=== PATIENT | female | born 1995 | race Caucasian/White ===

== ENCOUNTER 2017-02-18 13:39 | Emergency (ER) | payer OTHER ==
[~2017-02-18] VITALS: Ht 160 cm; Wt 94.8 kg
[~2017-02-18 13:39] MED LIST: AUGMENTIN 500-1 EACH PO; BACTRIM DS 8001 TAB PO; DEPO-PROVE150 MG/1 M IM; FLEXERIL10 MG PO; HYCET 7.5 MG-3473 ML PO; LOVENOX40 MG/0.1 SC; MOTRIN 600 MG600 MG PO; PHENERGAN25 M2 RC; PROTONIX20 M1 PO; STOOL SOFT50 MG/5 ML PO; ZOFRAN 4MG ORALL4 MG PO; ZOFRAN4 M2 SL
[2017-02-18 13:44] VITALS: BP 124/75
--- NOTE | 2017-02-18 14:17 | ED GENERAL ADULT ---
History of Present Illness General Chief Complaint: General Adult Stated Complaint: PT WALK IN TO THE GLASS Source: patient Exam Limitations: no limitations Vital Signs & Intake/Output Vital Signs & Intake/Output Vital Signs Date Time Temp Pulse Resp B/P Pulse O2 O2 Flow FiO2 Ox Delivery Rate 02/18 1601 70 02/18 1434 98 Room Air 02/18 1344 97.9 62 16 124/75 99 Room Air Allergies Coded Allergies: cat dander (Intermediate, HIVES 10/13/16) haloperidol (From HALDOL) (Mild, RASH ON FACE 07/28/16) Reconcile Medications Medroxyprogesterone Acetate (Depo-Provera) 150 MG/ML VIAL 150 MG IM Q3M CONTROL (Reported) Triage Note: PT STATES SHE WALKED INTO [employer] AND CUT HER LEFT DUNCAN ABOUT 20 MINUTES AGO Triage Nurses Notes Reviewed? yes Onset: Just prior to arrival Duration: minute(s): (30) Timing: no prior history Injury Environment: work Severity: moderate Severity Numbers: 6 Modifying Factors: Improves With: immobilization. Worsens With: movement. : No Patient currently breastfeeds: No HPI: Patient is a 21-year-old female presenting to the emergency department with chief complaint of laceration to right lower leg after she accidentally bumped into a broken piece of glass at work prior to arrival. Pain is mild to moderate worse with movement and palpation. Up-to-date with tetanus. Denies numbness or tingling. Denies any other injuries. No nausea vomiting fevers or chills chest pain or shortness of breath. She put rubbing alcohol on the laceration immediately after happened. She reports that it went through her leather boot. (DEYVI HAY) Past History Travel History Traveled to [place] past 21 day No Medical History Any Pertinent Medical History? see below for history Neurological: NONE EENT: NONE Cardiovascular: NONE Respiratory: NONE Gastrointestinal: HIATAL HERNIA GASTRIC SLEEVE Hepatic: NONE Renal: NONE Musculoskeletal: NONE Psychiatric: NONE Endocrine: NONE Blood Disorders: NONE Cancer(s): NONE SENIOR INSPECTOR/Reproductive: NONE History of MRSA: No History of VRE: No History of CDIFF: No Tetanus Vaccine: 10/13/16 Surgical History Surgical History: gastric sleeve Psychosocial History Who do you live with Family Services at Home None What is your primary language Latvian Tobacco Use: Never used ETOH Use: occasional use Illicit Drug Use: denies illicit drug use Family History Hx Contributory? No (DEYVI HAY) Review of Systems Review of Systems Constitutional: Reports: no symptoms. Comments Review of systems: See HPI, All other systems negative. Constitutional, no chills fever or weight loss HEENT: No visual changes no sore throat no congestion Cardiovascular: No chest pain ,palpitation Skin, no jaundice no rashes Respiratory: No dyspnea cough sputum GI: No nausea no vomiting Muscle skeletal: no back pain, no neck pain, Neurologic: No numbness no confusion Psych: No stress anxiety Heme/endocrine: No bruising no bleeding no polyuria or polydipsia Immunology: No splenectomy or history of AIDS (DEYVI HAY) Physical Exam Physical Exam General Appearance: well developed/nourished, no apparent distress, alert, comfortable Comments: Well-developed well-nourished person in no acute distress HEENT: Pupils equally round and reactive to light and accommodation. Nose is atraumatic. Neck: normal inspection Back: Nontender Cardiovascular: Regular rate and rhythms no murmurs rubs or gallops, normal JVP Respiratory: No respiratory distress.breath sounds clear to auscultation bilaterally Extremity: No edema, Neuro: Alert oriented x3, motor sensory normal Skin: 3 cm while approximating jag and laceration noted on the lateral aspect of the right lower extremity, mid shaft of the tibia area. There is a 1 cm piece of glass sticking from the laceration. No surrounding erythema or edema. Mildly tender to palpation. Psych: Mood and affect is normal, memory and judgment is normal. Core Measures ACS in differential dx? No CVA/TIA Diagnosis: No Severe Sepsis Present: No Septic Shock Present: No (DEYVI AHY) Progress Differential Diagnoses I considered the following diagnoses in my evaluation of the patient: Laceration, abrasion, contusion, foreign body in soft tissue, puncture wound Plan of Care: Cleaned and anesthetized. Foreign body was removed. Irrigation revealed no more foreign bodies. The foreign body did not break when we have removed it. Wound will be sutured. Patient declined pain medication on arrival. Initial ED EKG: none (DEYVI HAY) Departure Departure Time of Disposition: 1505 Disposition: HOME OR SELF CARE Condition: Stable Clinical Impression Primary Impression: Laceration Referrals: JUAN ROMERO,XIMENA Santiago (PCP/Family) Additional Instructions: Return in 10-14 days for suture removal. Keep wound clean, keep wound dry. Return sooner if he develop any increased redness pain or discharge from the laceration. Take Motrin and Tylenol as directed [id number] for pain. Departure Forms: Customer Survey General Discharge Information (DEYVI HAY) PA/GAMBLING DEALER Co-Sign Statement Statement: ED Attending supervision documentation- [] I saw and evaluated the patient. I have also reviewed all the pertinent lab results and diagnostic results. I agree with the findings and the plan of care as documented in the PA's/GAMBLING DEALER's documentation. [X] I have reviewed the ED Record and agree with the PA's/GAMBLING DEALER's documentation. [] Additions or exceptions (if any) to the PAs/GAMBLING DEALER's note and plan are summarized below: [] (CHARBEL ROMERO,REBEKA) Procedures Laceration/Wound Repair Laceration/Wound Repair: Wound Location: lower extremity Wound's Depth, Shape: irregular, subcutaneous Wound Length (cm): 3 Wound Explored: clean, no foreign body removed, foreign body removed, irrigated extensively Irrigated w/ Saline (ccs): 2000 Betadine Prep? Yes Anesthesia: 1% lidocaine Volume Anesthetic (ccs): 4 Wound Debrided: minimal Wound Repaired With: sutures Suture Size/Type: 4:0, nylon Number of Sutures: 6 Layer Closure? No Tetanus Status: up to date Progress: Patient tolerated procedure well. (DEYVI HAY) Critical Care Note Critical Care Note Critical Care Time: non-applicable (DEYVI HAY)
== END 2017-02-18 16:01 ==
LOC: ERH 13:39
DX: S81.811A Laceration without foreign body, right lower leg, initial encounter (principal); W25.XXXA Contact with sharp glass, initial encounter

== ENCOUNTER 2017-03-02 18:16 | Emergency (ER) | payer OTHER | END 2017-03-02 19:00 | disposition admitted as inpatient to this hospital (09) | LOC: ERH 18:16 | DX: Z48.02 Encounter for removal of sutures (principal) ==

== ENCOUNTER 2017-03-10 06:06 | Emergency (ER) | payer OTHER ==
[~2017-03-10] VITALS: Ht 157.5 cm; Wt 74.8 kg
[2017-03-10 06:15] VITALS: BP 123/59
--- NOTE | 2017-03-10 06:17 | ED SKIN/ALLERGY COMPLAINT ---
History of Present Illness General Chief Complaint: Skin Rash/ Abcess Stated Complaint: SKIN RASH Source: patient Exam Limitations: no limitations Vital Signs & Intake/Output Vital Signs & Intake/Output Vital Signs Date Time Temp Pulse Resp B/P Pulse O2 O2 Flow FiO2 Ox Delivery Rate 03/10 0615 97.1 56 18 123/59 96 Allergies Coded Allergies: cat dander (Intermediate, HIVES 10/13/16) haloperidol (From HALDOL) (Mild, RASH ON FACE 07/28/16) Reconcile Medications Hydrocortisone 1 % CREAM..G. 1 ENMA TOP BID ITCHING apply to affected area(s) Ibuprofen 600 MG TABLET 1 TAB PO TID PRN PAIN with food Medroxyprogesterone Acetate (Depo-Provera) 150 MG/ML VIAL 150 MG IM Q3M CONTROL (Reported) Methylprednisolone. (Medrol) 4 MG TAB.DS.PK 1 DP PO AD INFLAMMATION 6 on day 1 then reduce by one tablet daily until gone Triage Nurses Notes Reviewed? yes Onset: Abrupt Duration: day(s): (1) Timing: multiple episodes today Severity: mild Location: torso, extremities HPI: 21-year-old female presents to the ER for chief complaint of rash and itching to upper extremities and now to face. She states it started last night. Denies any change to her recent routine. She does work with Dr. She was bit by a rescue dog in her left breast a few days ago. That area has been healing well and is not red. She also presents for removal for stitches to her right leg that were placed 2 weeks ago. Past History Travel History Traveled to [place] past 21 day No Medical History Any Pertinent Medical History? see below for history Neurological: NONE EENT: NONE Cardiovascular: NONE Respiratory: NONE Gastrointestinal: HIATAL HERNIA GASTRIC SLEEVE Hepatic: NONE Renal: NONE Musculoskeletal: NONE Psychiatric: NONE Endocrine: NONE Blood Disorders: NONE Cancer(s): NONE PHARMACOGNOSIST/Reproductive: NONE History of MRSA: No History of VRE: No History of CDIFF: No Tetanus Vaccine: 10/13/16 Surgical History Surgical History: gastric sleeve Psychosocial History Who do you live with Family Services at Home None What is your primary language Israeli Family History Hx Contributory? No Review of Systems Review of Systems Constitutional: Denies: chills, fever. EENTM: Reports: no symptoms. Respiratory: Denies: short of breath. Cardiovascular: Denies: chest pain. GI: Reports: no symptoms. Genitourinary: Reports: no symptoms. Musculoskeletal: Reports: no symptoms. Skin: Reports: rash. Neurological/Psychological: Reports: no symptoms. Hematologic/Endocrine: Denies: bruising, bleeding, polyuria, polydipsia. Immunologic/Allergic: Denies: splenectomy. All Other Systems: Reviewed and Negative Physical Exam Physical Exam General Appearance: well developed/nourished, awake, mild distress Head: atraumatic Eyes: Bilateral: PERRL, EOMI. Ears, Nose, Throat: normal pharynx, normal ENT inspection, hearing grossly normal Neck: normal inspection, supple Respiratory: normal breath sounds Cardiovascular: regular rate/rhythm Gastrointestinal: soft, non-tender Back: normal inspection Extremities: normal inspection, normal range of motion, no edema Neurologic/Psych: awake, alert, oriented x 3, normal mood/affect Skin: intact, normal color, warm/dry Skin Problem Location: face, neck, upper extremities Skin Problem Character: urticarial Lymphatic: no anterior cervical valeria Progress Differential Diagnosis: allergic reaction Plan of Care: Current Medications Sig/Xiomara Start time Last Medication Dose Stop Time Status Admin Famotidine 20 MG ONCE ONE 03/10 630 AC (Pepcid) 03/10 631 Prednisone 60 MG ONCE ONE 03/10 630 AC 03/10 631 Departure Departure Time of Disposition: 627 Disposition: HOME OR SELF CARE Condition: Stable Clinical Impression Primary Impression: Rash Referrals: JUAN ROMERO,XIMENA Santiago (PCP/Family) Additional Instructions: Take the prednisone and cortisone cream and pepcid as directed. Take benadryl as needed. Follow up with your doctor in the office. Return as needed. Departure Forms: Customer Survey General Discharge Information Prescriptions: Current Visit Scripts Methylprednisolone. (Medrol) 1 DP PO AD #1 DP 6 on day 1 then reduce by one tablet daily until gone Hydrocortisone 1 ENMA TOP BID #30 GM apply to affected area(s)
[2017-03-10] MEDS ORDERED: HYDROCORTISO453.6 G1 TOP (06:33)
[2017-03-10] MEDS ORDERED: MEDROL4 M2 PO (06:33)
== END 2017-03-10 06:59 ==
LOC: ERH 06:06
DX: R21 Rash and other nonspecific skin eruption (principal)

== ENCOUNTER 2017-03-12 13:15 | Emergency (ER) | payer OTHER ==
[~2017-03-12] VITALS: Ht 160 cm; Wt 93.0 kg
[~2017-03-12 13:15] MED LIST changes: +HYDROCORTISO453.6 G1 TOP; +MEDROL4 M2 PO
[2017-03-12 13:17] VITALS: BP 157/102
--- NOTE | 2017-03-12 13:23 | ED GENERAL ADULT ---
See Addendum History of Present Illness General Chief Complaint: Fall Stated Complaint: L WRIST/L LEG PAIN S/P FALL Source: patient Exam Limitations: no limitations Vital Signs & Intake/Output Vital Signs & Intake/Output Vital Signs Date Time Temp Pulse Resp B/P Pulse O2 O2 Flow FiO2 Ox Delivery Rate 03/12 1344 Room Air Room Air 03/12 1317 98.6 97 16 157/102 98 Room Air Allergies Coded Allergies: cat dander (Intermediate, HIVES 10/13/16) haloperidol (From HALDOL) (Mild, RASH ON FACE 07/28/16) Reconcile Medications Hydrocortisone 1 % CREAM..G. 1 ENMA TOP BID ITCHING apply to affected area(s) Ibuprofen 600 MG TABLET 1 TAB PO TID PRN PAIN with food Medroxyprogesterone Acetate (Depo-Provera) 150 MG/ML VIAL 150 MG IM Q3M CONTROL (Reported) Methylprednisolone. 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 VARIOUS SCRAPES NOTED AND AREAS OF REDNESS TO ARMS AND L LEG. PT C/O PAIN IN L WRIST. SPLINT PLACED. MED WITH MOTRIN. TAKEN TO [facility] FOR [facility] Triage Nurses Notes Reviewed? yes Onset: Abrupt Duration: hour(s): Timing: recent history : No Patient currently breastfeeds: No HPI: 03/12/17 1:25 PM This is a 21-year-old female presents to the emergency department status post fall. The patient was on a 3 foot step ladder and fell off injuring her left ankle, her left foot and her left forearm. The onset of the symptoms were abrupt, the duration was just today, the severity is significant; as her symptoms required to come to the emergency department for care. She denies headache neck pain abdominal pain or other complaints. She denies any possibility of . X-rays were ordered and she was treated with analgesics at triage. The patient has tenderness to the the lateral malleolus on the left. She also has significant tenderness to the left dorsal forearm. Past History Travel History Traveled to [place] past 21 day No Medical History Any Pertinent Medical History? see below for history Neurological: NONE EENT: NONE Cardiovascular: NONE Respiratory: NONE Gastrointestinal: HIATAL HERNIA GASTRIC SLEEVE Hepatic: NONE Renal: NONE Musculoskeletal: NONE Psychiatric: NONE Endocrine: NONE Blood Disorders: NONE Cancer(s): NONE INDUSTRIAL RELATIONS REPRESENTATIVE/Reproductive: NONE History of MRSA: No History of VRE: No History of CDIFF: No Tetanus Vaccine: 10/13/16 Surgical History Surgical History: gastric sleeve Psychosocial History Who do you live with Family Services at Home None What is your primary language Yi Tobacco Use: Never used Family History Hx Contributory? No Review of Systems Review of Systems Constitutional: Denies: fever. EENTM: Denies: visual changes. Respiratory: Denies: short of breath. Cardiovascular: Denies: chest pain. GI: Denies: abdominal pain. Genitourinary: Reports: no symptoms. Musculoskeletal: Reports: see HPI. Denies: neck pain. Skin: Reports: no symptoms. Neurological/Psychological: Reports: no symptoms. Hematologic/Endocrine: Reports: bruising. Physical Exam Physical Exam General Appearance: well developed/nourished, alert, awake, anxious, mild distress Head: atraumatic, normal appearance Eyes: Bilateral: normal appearance, PERRL, EOMI. Ears, Nose, Throat: normal pharynx, normal ENT inspection, hearing grossly normal Neck: no midline tenderness, Nexus criteria negative Respiratory: normal breath sounds, chest non-tender, no respiratory distress Cardiovascular: regular rate/rhythm Peripheral Pulses: 4+ radial (R), 4+ radial (L) Gastrointestinal: soft, non-tender Back: normal range of motion Extremities: swelling, tenderness Neurologic/Psych: no motor/sensory deficits, awake, alert, oriented x 3 Skin: intact, normal color, warm/dry Comments: The patient was placed in the left though process wrist splint by me. She had significant tenderness to the dorsal aspect of the left forearm, also the proximal thener eminence. She had no snuffbox tenderness. She also had tenderness and abrasions to the left dorsal foot, and tenderness to the left lateral malleolus. No ligament instability. She was told to take ibuprofen, but only as needed for short period of time. She has had prior gastric surgery. She will follow-up with orthopedics this week if the pain continues. Core Measures ACS in differential dx? No CVA/TIA Diagnosis: No Severe Sepsis Present: No Septic Shock Present: No Progress Differential Diagnoses I considered the following diagnoses in my evaluation of the patient: [Fracture, dislocation, sprain, contusion] Plan of Care: Orders Procedure Date/time Status Durable Medical Equipment 03/12 1427 Active PATIENT: CYNTHIA SOARES PRESENT AGE: 21 PATIENT ACCOUNT NO: [id number] : 93 LOCATION: [facility] ORDERING PHYSICIAN: AMY LAGOS DO SERVICE DATE: 03/12/17 EXAM TYPE: RAD - XRY-FOREARM, LEFT; XRY-WRIST COMPLETE-LEFT EXAMINATION: XR FOREARM, LEFT XR WRIST, LEFT CLINICAL INFORMATION: Pain after fall. COMPARISON: None TECHNIQUE: Left forearm, 2 views Left wrist, 4 views FINDINGS: Left forearm: Bones have normal alignment at the elbow and wrist. No elbow joint effusion. No fracture, periostitis or focal soft tissue swelling. Left wrist: Bones, joints and soft tissues are unremarkable. No evidence of scaphoid fracture or other carpal bone injury. IMPRESSION: Normal left forearm and wrist. DICTATED BY: BALDO BROWNLEE MD DATE/TIME DICTATED:03/12/171403 LEACH RUNNER:MARYA DATE/TIME TRANSCRIBED:03/12/171403 CONFIDENTIAL, DO NOT COPY WITHOUT APPROPRIATE AUTHORIZATION. <Electronically signed in Other Vendor System> SIGNED BY: BALDO BROWNLEE MD 03/12/171411 PATIENT: CYNTHIA SOARES PRESENT AGE: 21 PATIENT ACCOUNT NO: [id number] : 93 LOCATION: [facility] ORDERING PHYSICIAN: AMY LAGOS DO SERVICE DATE: 03/12/17 EXAM TYPE: RAD - XRY-ANKLE 3 OR MORE VIEWS L; XRY-FOOT COMPLETE, LEFT EXAMINATION: XR ANKLE, LEFT XR FOOT, LEFT CLINICAL INFORMATION: Pain after fall COMPARISON: None TECHNIQUE: Left ankle, 3 views Left foot, 3 views FINDINGS: Left ankle: The talar dome is well-positioned within the intact ankle mortise. The ankle joint space and tibiofibular syndesmotic space are normal. No arthritic disease, fracture, subluxation or joint effusion. Left foot: Bones, joints and soft tissues are unremarkable. The Lisfranc joint is intact. No radiopaque foreign body. IMPRESSION: No acute findings within the left ankle or left foot. DICTATED BY: BALDO BROWNLEE MD DATE/TIME DICTATED:03/12/171404 LEACH RUNNER:MARYA DATE/TIME TRANSCRIBED:03/12/171404 CONFIDENTIAL, DO NOT COPY WITHOUT APPROPRIATE AUTHORIZATION. <Electronically signed in Other Vendor System> SIGNED BY: BALDO BROWNLEE MD 03/12/17 1409 (AMY LAGOS DO) Initial ED EKG: none Departure Departure Disposition: HOME OR SELF CARE Condition: Stable Clinical Impression Primary Impression: Left wrist sprain Secondary Impressions: Contusion of left foot, Left ankle sprain Referrals: JUAN ROMERO,XIMENA Santiago (PCP/Family) Departure Forms: Customer Survey General Discharge Information Prescriptions: Current Visit Scripts Ibuprofen 1 TAB PO TID PRN PAIN #20 TAB with food Critical Care Note Critical Care Note Critical Care Time: non-applicable
--- NOTE | 2017-03-12 14:09 | RADIOLOGY REPORT ---
EXAMINATION: XR ANKLE, LEFT XR FOOT, LEFT CLINICAL INFORMATION: Pain after fall COMPARISON: None TECHNIQUE: Left ankle, 3 views Left foot, 3 views FINDINGS: Left ankle: The talar dome is well-positioned within the intact ankle mortise. The ankle joint space and tibiofibular syndesmotic space are normal. No arthritic disease, fracture, subluxation or joint effusion. Left foot: Bones, joints and soft tissues are unremarkable. The Lisfranc joint is intact. No radiopaque foreign body. IMPRESSION: No acute findings within the left ankle or left foot.
--- NOTE | 2017-03-12 14:12 | RADIOLOGY REPORT ---
EXAMINATION: XR FOREARM, LEFT XR WRIST, LEFT CLINICAL INFORMATION: Pain after fall. COMPARISON: None TECHNIQUE: Left forearm, 2 views Left wrist, 4 views FINDINGS: Left forearm: Bones have normal alignment at the elbow and wrist. No elbow joint effusion. No fracture, periostitis or focal soft tissue swelling. Left wrist: Bones, joints and soft tissues are unremarkable. No evidence of scaphoid fracture or other carpal bone injury. IMPRESSION: Normal left forearm and wrist.
[2017-03-12] MEDS ORDERED: IBUPROFEN600 M1 PO (14:32)
== END 2017-03-12 15:12 ==
LOC: ERH 13:15
DX: S63.502A Unspecified sprain of left wrist, initial encounter (principal); S93.402A Sprain of unspecified ligament of left ankle, initial encounter; S90.32XA Contusion of left foot, initial encounter; W11.XXXA Fall on and from ladder, initial encounter; Y92.9 Unspecified place or not applicable; Y93.9 Activity, unspecified
CPT/HCPCS: 73090-LT; 73110-LT; 73610-LT; 73630-LT